=== PATIENT | female | born 1985 | race Hispanic/Latino ===

== ENCOUNTER 2019-02-11 19:54 | Observation (INO) | payer OTHER, SELFPAY ==
[~2019-02-11 19:54] MED LIST: ISOVUE-370 76%-LOCM 1 ML ONE
[2019-02-11 20:21] LABS: #Eosinphils 0.1 thou/uL (0.0-0.7); #Lymphocytes 4.2 thou/uL (1.20-3.40); #Monocytes 0.6 thou/uL (0.11-0.59); #Neutrophils 8.2 thou/uL (1.40-6.50); %Basophils 0.3 % (0.0-1.0); %Monocytes 4.7 % (0.0-10.0); Mean Corpuscular Hemoglobin 28.6 pg (27.0-31.0); Mean Corpuscular Volume 86.5 fL (78.0-98.0); Mean Platelet Volume 7.7 fL (7.4-10.4); Platelet Count 379 thou/uL (130-400); RBC Distribution Width 12.8 % (11.5-14.5); Red Blood Cell (RBC) Count 4.21 mill/uL (4.20-5.40); White Blood Cell (WBC) Count 13.2 thou/uL (4.8-10.8)
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
[2019-02-11] MEDS ORDERED: Morphine 4 MG/ML VIAL ONE (20:26)
[2019-02-11] MEDS ORDERED: Adacel (T-DAP) 0.5 ML SYRINGE ONE (20:26)
[2019-02-11 20:28] LABS: BHCG - Serum Negative (NEGATIVE); INR-International Normal Ratio 1.1; PTT 29.9 SEC (22.9-36.1); Pregs Control Background? CLEAR/WHITE (CLR/WHITE); Pregs Control Bar Appear? YES (CONTROL BAR); Prothrombin Time 13.9 SEC (12.0-14.7)
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
[2019-02-11 20:43] LABS: ALT (SGPT) 57 U/L (8-55); AST (SGOT) 45 U/L (5-34); Albumin 4.4 g/dL (3.5-5.0); Alkaline Phosphatase 64 U/L (40-150); Anion Gap 13 mmol/L (10-20); BUN (Urea Nitrogen) 10 mg/dL (7.0-18.7); Bilirubin, Total 0.2 mg/dL (0.2-1.2); Calc. Creatinine Clearance 0 mL/min (70-130); Calcium 9.1 mg/dL (7.8-10.44); Carbon Dioxide 23 mmol/L (22-29); Chloride 104 mmol/L (98-107); Estimated GFR-MDRD Greater than 90; Globulin 3.2 g/dL (2.4-3.5); Glucose 116 mg/dL (70-105); Lipase 16 U/L (8-78); Potassium 3.4 mmol/L (3.5-5.1); Protein, Total 7.6 g/dL (6.0-8.3); Sodium 137 mmol/L (136-145)
[2019-02-11 21:03] LABS: Bacteria/HPF 1+ HPF (None Seen); Bilirubin Negative (Negative); Blood, Urine 1+ (Negative); Clarity Clear (Clear); Glucose, Urine (Dipstick) Normal (Negative); Leukocyte Negative Leu/uL (Negative); Nitrite Negative (Negative); Protein, Urine (Dipstick) Negative (Neg-Trace); Squamous Epithelial 0-3 HPF (0-3); Urobilinogen Normal mg/dL (Less than 2); WBC/HPF 0-3 HPF (0-3)
[2019-02-11] MEDS ORDERED: Lidocaine 1% PF 5 ML VIAL ONE (22:36)
[2019-02-11] MEDS ORDERED: Lidocaine 2% MPF 10 ML AMP (For Epidural Use) ONE (22:36)
[2019-02-11] MEDS ORDERED: Lidocaine 1% w/Epinephrine 1:100K 20 ML VIAL ONE (23:35)
[2019-02-12] MEDS ORDERED: Ondansetron PF 4 MG/2 ML Vial ONE ×2 (00:37→13:15)
[2019-02-12] MEDS ORDERED: Dextrose 50% Abboject 50 ML SYRINGE SLOW IVP PRN (00:43)
[2019-02-12] MEDS ORDERED: Dextrose 5% in Water 1,000 ML IV PRN (00:43)
[2019-02-12] MEDS ORDERED: Morphine 2 MG/ML SYRINGE SLOW IVP PRN (00:43)
[2019-02-12] MEDS ORDERED: Promethazine HCl 25 MG/ML VIAL IM PRN ×2 (00:43→07:51)
[2019-02-12] MEDS ORDERED: hydrALAZINE 20 MG/ML VIAL SLOW IVP PRN (00:43)
[2019-02-12] MEDS ORDERED: Ondansetron PF 4 MG/2 ML Vial IVP PRN (00:43)
[2019-02-12] MEDS ORDERED: traMADol HCl 50 MG TAB PO PRN ×2 (00:46)
[2019-02-12] MEDS ORDERED: Cyclobenzaprine 10 MG TAB PO PRN (00:46)
[2019-02-12 00:56] LABS: Lactic Acid 2.7 mmol/L (0.5-2.2)
[2019-02-12] MEDS ORDERED: Sodium Chloride 0.9% 1,000 ML IV SCH (01:15)
[2019-02-12] MEDS ORDERED: Ketorolac Tromethamine 30 MG/ML VIAL IVP SCH ×2 (01:15→06:00)
[2019-02-12] MEDS ORDERED: Potassium Chloride 20 MEQ TAB PO SCH (02:00)
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
[2019-02-12 03:54] VITALS: BMI 31.1
[2019-02-12] MEDS ORDERED: Acetaminophen 1,000 MG in Premix Bag 1 BAG IVPB SCH (06:00)
[2019-02-12] MEDS ORDERED: Bupivacaine HCl 0.5%/Epinephrine 1:200,000/PF 30 ml Vial ONE (07:44)
[2019-02-12] MEDS ORDERED: Ondansetron HCl/PF 4 MG/2 ML Vial IVP PRN (07:51)
[2019-02-12] MEDS ORDERED: Promethazine HCl 25 MG/ML VIAL SLOW IVP PRN (07:51)
[2019-02-12] MEDS ORDERED: Midazolam HCl 2 mg/2 ml Vial ONE (07:55)
[2019-02-12] MEDS ORDERED: Propofol 500 MG/50 ML VIAL ONE (07:55)
[2019-02-12] MEDS ORDERED: Fentanyl 100 MCG/2 ML VIAL ONE (07:55)
[2019-02-12] MEDS ORDERED: Bupivacaine/Epinephrine 0.25% 30 ML VIAL ONE (08:19)
[2019-02-12] MEDS ORDERED: Bacitracin Zinc Ointment 30 gm TUBE ONE (08:56)
[2019-02-12] MEDS ORDERED: Famotidine 20 MG TAB PO SCH (09:00)
[2019-02-12] MEDS ORDERED: Lisinopril/Hydrochlorothiazide 10 mg/12.5 mg Tablet PO SCH (09:00)
[2019-02-12] MEDS ORDERED: Polyethylene Glycol 3350 17 GM Packet PO SCH (09:00)
[2019-02-12] MEDS ORDERED: Senokot S 8.6-50 MG TAB PO SCH (09:00)
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
[2019-02-12 10:53] VITALS: BP 155/75; TEMP 98.1
[2019-02-12] MEDS ORDERED: Glycopyrrolate 0.2 MG/ML 5 ML SYRINGE ONE (13:15)
[2019-02-12] MEDS ORDERED: Lidocaine 2% PF 5 ML VIAL ONE (13:15)
[2019-02-12] MEDS ORDERED: Rocuronium Bromide 10 MG/ML (10ML VIAL) ONE (13:15)
[2019-02-12] MEDS ORDERED: PROPOFOL 200 MG/20 ML VIAL ONE (13:15)
[2019-02-12] MEDS ORDERED: Ketorolac Tromethamine 30 MG/ML VIAL ONE (13:15)
[2019-02-12] MEDS ORDERED: diphenhydrAMINE 50 MG/ML VIAL ONE (13:15)
[2019-02-12] MEDS ORDERED: Dexamethasone 20 MG/5 ML VIAL ONE (13:15)
[2019-02-13] MEDS ORDERED: Levothyroxine Sodium 125 MCG TAB PO SCH (06:00)
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
== END 2019-02-12 13:54 | disposition home or self-care (01) ==
LOC: ERS 19:54 → SURG A 02-12 00:43
PROVIDERS: ADMIT Specialist; ATTEND Specialist
PROC: 0HX0XZZ Transfer Scalp Skin, External Approach (ICD-10-PCS; principal; 2019-02-12)
DX: S01.02XA Laceration with foreign body of scalp, initial encounter (principal); I10 Essential (primary) hypertension; Z79.899 Other long term (current) drug therapy; V89.2XXA Person injured in unspecified motor-vehicle accident, traffic, initial encounter
CPT/HCPCS: 36415; 70450; 71260; 72125; 74177; 80053; 81003; 83605; 83690; 84703; 85025; 85610; 85730; 86850; 86900; 86901; 90471; 90715; 93005; 96361; 96372; 96374; 96375; 96376; G0378; G0390; J0131; J0670; J0690; J1100; J1200; J1885; J2001; J2250; J2270; J2405; J2704; J3010; Q9966